=== PATIENT | female | born 1990 | race Caucasian/White ===

== ENCOUNTER 2017-11-14 07:34 | Inpatient (IN) | payer BC, MEDICAID ==
[2017-11-14] MEDS ORDERED: Penicillin G Potassium IV* 5,000,000 UNITS in NS 0.9% 100 ML* 100 ML IVPB ONE (09:00)
[2017-11-14 09:36] LABS: ABS Basophils 0.1 10^3/ul (0-0.2); ABS Eosinophils 0.1 10^3/ul (0-0.6); ABS Lymphocytes 1.6 10^3/ul (1.0-4.8); ABS Monocytes 0.6 10^3/ul (0-0.8); ABS Neutrophils 8.2 10^3/ul (1.5-7.7); ABS Nucleated RBC 0 10^3/ul; Eosinophil % 0.6 % (0-6); Hematocrit 33 % (35-47); Hemoglobin 11.1 g/dl (12.0-16.0); Lymphocyte % 15.1 % (25-47); Mean Corpuscular HGB Conc 33 g/dl (31-36); Mean Corpuscular Hemoglobin 25 pg (27-31); Mean Corpuscular Volume 76 fL (80-97); Mean Platelet Volume 7.9 um3 (7.4-10.4); Nucleated Red Blood Cells % 0.1; Platelet Count 271 10^3/ul (150-450); Red Blood Count 4.37 10^6/ul (4.0-5.4); Red Cell Distribution Width 18 % (10.5-15); White Blood Count 10.6 10^3/ul (3.5-10.8)
[2017-11-14] MEDS ORDERED: Oxytocin in LR* 20 UNITS/1,000 ML BAG IVPB SCH (10:00)
--- NOTE | 2017-11-14 10:56 | HP ---
General Information - General Information Maternal Age: 27 Grav: 1 Para: 0 SAB: 0 IEA: 0 Estimated Due Date: 11/21/17 Determined By: Early Ultrasound Gestational Age in Weeks and Days: 39 Weeks and 0 Days Maternal Blood Type and Rh: O Positive - Results this Serology/RPR Result: Non-Reactive Rubella Result: Immune HBsAg Result: Negative HIV Result: Negative GBS Culture Result: Positive Past Medical History Pertinent Past Medical History: Non-Contributory - Pt says she was dx'd with a heart murmur that "cleared up" by the time she was [age]. She saw a assurance services manager health care again at age 13 and was told she has a valve that doesn't close the whole way but that she doesn't need to worry about it - no symptoms at all Pertinent Past Surgical History: See Records Pertinent Family History: Non-Contributory - Antepartal Records Antepartal Records: Reviewed, Complicated by: - A1GDM Review of Systems Constitutional: Comfortable CV Complaint: No Respiratory: Shortness of Breath: No Gastrointestinal: No Nausea/Vomiting Genitourinary: No Dysuria, No Bleeding, No Leaking Fluid Musculoskeletal: No Complaint Neurological: No Headache, No Visual Changes Movement: Normal Exam Allergies/Adverse Reactions: Allergies No Known Allergies Allergy (Verified 11/14/17 07:56) Lab Values - Entire Visit: Laboratory Tests 11/14/17 11/14/17 09:25 09:25 WBC 10.6 RBC 4.37 Hgb 11.1 L Hct 33 L MCV 76 L MCH 25 L MCHC 33 RDW 18 H Plt Count 271 MPV 7.9 Neut % (Auto) 77.6 Lymph % (Auto) 15.1 L [place] % (Auto) 6.1 Eos % (Auto) 0.6 Baso % (Auto) 0.6 Absolute Neuts (auto) 8.2 H Absolute Lymphs (auto) 1.6 Absolute Monos (auto) 0.6 Absolute Eos (auto) 0.1 Absolute Basos (auto) 0.1 Absolute Nucleated RBC 0 Nucleated RBC % 0.1 Blood Type O Positive Antibody Screen Negative - Measurements Height: 5 ft 2.5 in Weight: 252 lb Weight in lbs: 252 Body Mass Index (BMI): 45.3 Pre- Weight: 8.889 oz Weight Gained This : 251.444 lbs and 0.007 ozs - Exam Abdomen: No Upper Quadrant Pain Breast: Breast Exam Deferred CVA: No CVA Tenderness Extremities: No Edema Heart: Normal Rhythm/Heart Sounds HEENT: No Significant Findings Lungs: Clear Bilaterally - Abdominal Exam Abdomen Exam: Non-Tender - Ultrasound/Biophysical Profile Ultrasound Findings: Had sono in the office on 11/08/17 with EFW 7lb 7oz, 61%ile with abd circ > 97.7ile and the HC and BPD <2.3%ile Targeted Exam Findings Cervical Exam: 2cm Effacement: 80% Station: -2 Presenting Part: Vertex Membrane Status: Intact EFM Findings - External Monitor Findings Baseline Heart Rate: 150 External Monitor Findings: Accelerations Present, No Pattern of Variable or Late Decelerations, Variability Moderate, Baseline Stable Contractions: Irregular Assessment/Plan - Reason for Visit Reason for Visit: Induction at 39 weeks. Pt counseled extensively on Saturday and given option for primary section due to large abdominal circumference. She understands the risk of shoulder dystocia and sequelae and prefers to proceed with induction. - Obstetrical Risk Factors Obstetrical Risk Factors: GBS Positive, Obesity, Gestational Diabetes Risk Factors Comment: Disproportionately large abdominal circumference compared to rest of the body. - Plan Plan: Induction, Antibiotic Prophylaxis Plan Comment: Pitocin Be prepared for possible shoulder dystocia. - Date/Time of Admission Date of Admission: 11/14/17 Time of Admission: 09:00
[2017-11-14] MEDS ORDERED: OBEPIDURAL* 250 ML EPIDURAL ONE (23:46)
[2017-11-15] MEDS ORDERED: Phenylephrine IV* 40 MCG/ML 10 ML SYRINGE IV PUSH PRN (00:51)
[2017-11-15] MEDS ORDERED: Sodium Citrate/Citric Acid* 15 ML UDC PO PRN (00:51)
[2017-11-15] MEDS ORDERED: Famotidine TAB* 20 MG PO PRN (00:51)
[2017-11-15] MEDS ORDERED: OBEPIDURAL* 250 ML EPIDURAL SCH (01:00)
[2017-11-15] MEDS: Penicillin G Potassium IV* 2,500,000 UNITS in NS 0.9% 100 ML* 100 ML IVPB SCH ×4 (03:00→11:07)
[2017-11-15] MEDS ORDERED: ceFOXitin 2 GM IVPREMIX* 2 GM/50 ML BAG IVPB ONE (11:43)
[2017-11-15] MEDS ORDERED: NS 0.9% 50 ML* 50 ML with ceFOXitin(*) 2 GM IVPB ONE ×2 (12:00)
[2017-11-15] MEDS ORDERED: Chloroprocaine 3%* 20 ML VIAL ONE (12:10)
[2017-11-15] MEDS ORDERED: Bupivacaine 0.5% SDV PF* 30ML VIAL ONE (12:10)
[2017-11-15] MEDS ORDERED: OXYTOCIN* 10 UNITS/ML 1 ML VIAL ONE (12:10)
[2017-11-15] MEDS ORDERED: Phenylephrine IV* 40 MCG/ML 10 ML SYRINGE ONE (12:10)
[2017-11-15] MEDS ORDERED: Famotidine IV* 10 MG/ML 2 ML (20 mg) ONE (12:29)
[2017-11-15] MEDS ORDERED: Ondansetron INJ* 2 MG/ML VIAL ONE (12:29)
[2017-11-15] MEDS ORDERED: Morphine PF AMP (0.5MG/ML)* 5 MG/10 ML AMP ONE (12:33)
[2017-11-15] MEDS ORDERED: oxyCODONE/Acetamin 5/325 MG* TAB PO PRN ×4 (13:09→13:15)
[2017-11-15] MEDS ORDERED: Zolpidem TAB* 5 MG PO PRN (13:09)
[2017-11-15] MEDS ORDERED: Dibucaine 1% 28.35 GM TUBE PR PRN (13:09)
[2017-11-15] MEDS ORDERED: Ibuprofen TAB* 600 MG PO PRN (13:09)
[2017-11-15] MEDS ORDERED: Glycerin ADULT SUPP PR PRN (13:09)
[2017-11-15] MEDS ORDERED: Witch Hazel PAD* JAR TOPICAL PRN (13:09)
[2017-11-15] MEDS ORDERED: Acetaminophen TAB* 325 MG PO PRN (13:09)
[2017-11-15] MEDS ORDERED: PROCHLORPERAZINE INJ 5 MG/ML 2 ML VIAL IV PRN (13:15)
[2017-11-15] MEDS ORDERED: Nalbuphine* 20 MG/ML 1 ML VIAL IV PRN ×2 (13:15)
[2017-11-15] MEDS ORDERED: Ondansetron INJ* 2 MG/ML VIAL IV PRN (13:15)
[2017-11-15] MEDS ORDERED: Naloxone* 0.4 MG/ML 1 ML VIAL IV PRN ×2 (13:15)
[2017-11-15] MEDS ORDERED: Scopolamine 1.5 mg* PATCH TRANSDERM PRN (13:15)
[2017-11-15] MEDS ORDERED: diPHENhydraMINE IV* 50 MG/ML 1 ml VIAL (BENADRYL) IV PRN (13:15)
[2017-11-15] MEDS ORDERED: DiMENhydriNATE IV* 50 MG/ML VIAL IV PUSH PRN (13:15)
[2017-11-15] MEDS ORDERED: fentaNYL* 50 MCG/ML 2 ML VIAL (100 MCG VIAL) IV PRN (13:15)
[2017-11-15] MEDS ORDERED: Ketorolac INJ* 30 MG/ML 1 ML VIAL ONE (13:51)
[2017-11-15] MEDS: Ketorolac INJ* 30 MG/ML 1 ML VIAL IV SCH ×2 (13:54→20:02)
[2017-11-15] MEDS ORDERED: Oxytocin in LR* 20 UNITS/1,000 ML BAG IVPB SCH (14:00)
[2017-11-15] MEDS: Docusate CAP* 100 MG PO SCH ×2 (14:58→20:02)
[2017-11-15] MEDS: Acetaminophen TAB* 325 MG PO SCH ×3 (14:58→22:01)
[2017-11-15] MEDS: Simethicone TAB* 80 MG TAB.CHEW PO SCH ×2 (18:07→22:01)
[2017-11-16] MEDS: Acetaminophen TAB* 325 MG PO SCH (03:32)
[2017-11-16] MEDS: Ketorolac INJ* 30 MG/ML 1 ML VIAL IV SCH ×2 (03:33→09:45)
[2017-11-16] MEDS ORDERED: oxyCODONE/Acetamin 5/325 MG* TAB PO PRN ×2 (04:50)
[2017-11-16 06:33] LABS: ABS Basophils 0 10^3/ul (0-0.2); ABS Eosinophils 0.1 10^3/ul (0-0.6); ABS Lymphocytes 1.9 10^3/ul (1.0-4.8); ABS Neutrophils 8.3 10^3/ul (1.5-7.7); ABS Nucleated RBC 0 10^3/ul; Hematocrit 27 % (35-47); Hemoglobin 9.1 g/dl (12.0-16.0); Lymphocyte % 16.6 % (25-47); Mean Corpuscular HGB Conc 33 g/dl (31-36); Mean Corpuscular Hemoglobin 25 pg (27-31); Mean Corpuscular Volume 77 fL (80-97); Mean Platelet Volume 7.5 um3 (7.4-10.4); Nucleated Red Blood Cells % 0; Platelet Count 239 10^3/ul (150-450); Red Blood Count 3.58 10^6/ul (4.0-5.4); Red Cell Distribution Width 18 % (10.5-15); White Blood Count 11.3 10^3/ul (3.5-10.8)
--- NOTE | 2017-11-16 06:49 | OP ---
AMENDED REPORT TO CORRECT DATE OF OPERATION - ESIGNED BEFORE ADJUSTMENT DATE OF OPERATION: 11/15/17 - ROOM #115 DATE OF : 86 SURGEON: Brian Harrison MD SALES OPERATIONS SPECIALIST: Ana Cristina Patricia MD ANESTHESIA: Epidural. PRE-OP DIAGNOSIS: Arrest of dilation,suspected macrosomia. POST-OP DIAGNOSIS: Arrest of dilation. ESTIMATED BLOOD LOSS: 600 cc. FINDINGS: This is a 27-year-old 1, para 0 with a moderately controlled gestational diabetes who had an estimated abdominal circumference in the 97th percentile, she was counseled on the risk of shoulder dystocia and given the alternative of section or induction. She chose induction at that time. She was induced with progression to approximately 6 to 7 cm at 5 a.m. on the day of delivery. She did not progress beyond that. At 11 o'clock, she was still stuck at 6 to 7 despite adequate labor. The risks, benefits, alternatives and indications of the section were discussed with the patient and the patient agreed. At the time of , she had a viable male , Apgars 8 and 9, weight was 8 pounds 4 ounces. Normal-appearing uterus, fallopian tubes, and ovaries. DESCRIPTION OF PROCEDURE: The patient identified and procedure identified as a low transverse section. The patient was taken to the operating room and prepped and draped in the usual fashion in the left lateral recumbent position under epidural anesthesia. A Pfannenstiel incision was made in the abdomen and carried down through fat, fascia, and peritoneum. An Mark retractor was placed in the abdominal cavity and tightened down until good exposure of the uterus was found. The transverse incision was made in the lower uterine segment and extended laterally using bandage scissors. The above was delivered through the incision with ease. The cord was doubly clamped and cut and the was handed to the awaiting diesel technician. Cord blood was obtained. Placenta was delivered spontaneously. The uterus was wiped out with a wet lap sponge. The uterine incision was then closed using 0 Polysorb in a running fashion. A second layer was used to imbricate the first layer. Good hemostasis was verified. Gutters were wiped out with a wet lap sponge. The peritoneum was then closed using 3-0 Polysorb in a running fashion. Good hemostasis was achieved in the subrectus layers. The fascia was closed using 0 Polysorb in a running fashion. Good hemostasis achieved in the subcu. Copious irrigation was utilized and suctioned out. The subcutaneous space and the fat was closed using 3-0 Polysorb and the skin was closed with 4- 0 Monocryl in a subcuticular fashion. All sponge and instrument counts were correct and the patient was returned to recovery room in stable condition. [id number]/[facility] #: [id number] [facility] HEALTH PARTNERSMadeleine
[2017-11-16] MEDS: Ferrous Gluconate TAB* 324 MG TAB PO SCH ×2 (08:00→20:28)
[2017-11-16] MEDS: Docusate CAP* 100 MG PO SCH ×3 (08:00→20:27)
[2017-11-16] MEDS: Simethicone TAB* 80 MG TAB.CHEW PO SCH ×4 (08:00→20:30)
[2017-11-16] MEDS: Acetaminophen TAB* 325 MG PO PRN ×3 (08:00→20:28)
[2017-11-16] MEDS: Ibuprofen TAB* 600 MG PO PRN ×2 (16:09→22:50)
[2017-11-17] MEDS: Acetaminophen TAB* 325 MG PO PRN ×3 (04:18→20:15)
[2017-11-17] MEDS: Ferrous Gluconate TAB* 324 MG TAB PO SCH ×2 (07:58→20:15)
[2017-11-17] MEDS: Simethicone TAB* 80 MG TAB.CHEW PO SCH ×4 (07:59→20:15)
[2017-11-17] MEDS: Ibuprofen TAB* 600 MG PO PRN ×3 (07:59→23:26)
[2017-11-17] MEDS: Docusate CAP* 100 MG PO SCH ×3 (07:59→20:15)
[2017-11-18] MEDS: Ibuprofen TAB* 600 MG PO PRN (05:39)
[2017-11-18 07:39] VITALS: BP 132/82
[2017-11-18] MEDS: Docusate CAP* 100 MG PO SCH (09:50)
[2017-11-18] MEDS: Ferrous Gluconate TAB* 324 MG TAB PO SCH (09:50)
[2017-11-18] MEDS: Simethicone TAB* 80 MG TAB.CHEW PO SCH (09:50)
[2017-11-18] MEDS ORDERED: Scopolamine PATCH Remove* 1 NOTE MISC PATCH OFF PRN (13:19)
== END 2017-11-18 13:48 | disposition home or self-care (01) | DRG 540 ==
LOC: MCHOBOUT 07:34 → MCHOB 08:29
PROVIDERS: ADMIT Obstetrics & Gynecology; ATTEND Obstetrics & Gynecology
PROC: 3E033VJ Introduction of Other Hormone into Peripheral Vein, Percutaneous Approach (ICD-10-PCS; 2017-11-15)
PROC: 10907ZC Drainage of Amniotic Fluid, Therapeutic from Products of Conception, Via Natural or Artificial Opening (ICD-10-PCS; 2017-11-15)
PROC: 10D00Z1 Extraction of Products of Conception, Low, Open Approach (ICD-10-PCS; principal; 2017-11-15 11:58)
DX: O62.0 Primary inadequate contractions (principal); Z68.42 Body mass index [BMI] 45.0-49.9, adult; O24.420 Gestational diabetes mellitus in childbirth, diet controlled; O99.824 Streptococcus B carrier state complicating childbirth; O99.214 Obesity complicating childbirth; E66.01 Morbid (severe) obesity due to excess calories; O36.63X0 Maternal care for excessive fetal growth, third trimester, not applicable or unspecified; Z3A.39 39 weeks gestation of pregnancy; Z37.0 Single live birth
CPT/HCPCS: 36415; 85025; 86850; 86900; 86901; A9270-GY; J0694; J1885; J2400; J2405; J2540; J2590

== ENCOUNTER 2019-06-26 11:41 | Inpatient (IN) | payer BC ==
[2019-06-26] MEDS ORDERED: Lactated Ringers 1000 ML Bag* 1,000 ML IV ONE (12:05)
[2019-06-26] MEDS ORDERED: Buffered Lidocaine 1% SYRIN* 1 ML/SYRINGE INTRADERM ONE (12:05)
[2019-06-26] MEDS ORDERED: Lactated Ringers 1000 ML Bag* 1,000 ML IV SCH ×2 (13:00→20:00)
[2019-06-26 13:21] LABS: Hematocrit 32 % (35-47); Hemoglobin 10.7 g/dL (12.0-16.0); Mean Corpuscular HGB Conc 34 g/dL (31-36); Mean Corpuscular Hemoglobin 25 pg (27-31); Mean Corpuscular Volume 75 fL (80-97); Mean Platelet Volume 7.8 fL (7.4-10.4); Platelet Count 240 10^3/uL (150-450); Red Blood Count 4.27 10^6 /uL (3.70-4.87); Red Cell Distribution Width 19 % (10-15); White Blood Count 9.7 10^3/uL (3.5-10.8)
[2019-06-26 13:40] LABS: ABS Basophils 0.1 10^3/ul (0-0.2); ABS Eosinophils 0.1 10^3/ul (0-0.6); ABS Lymphocytes 1.6 10^3/ul (1.0-4.8); ABS Monocytes 0.9 10^3/ul (0-0.8); ABS Neutrophils 7.3 10^3/ul (1.5-7.7); Eosinophil % 0.8 %; Lymphocyte % 16.5 %
[2019-06-26 13:41] LABS: Albumin 3.2 g/dL (3.2-5.2); Albumin/Globulin Ratio 1.2 (1-3); BUN/Creatinine Ratio 21.7 (8-20); EGFR African American 191.7 (>60); EGFR Non-African American 158.4 (>60); Globulin 2.7 g/dL (2-4); Potassium 3.9 mmol/L (3.5-5.0); Total Bilirubin 0.3 mg/dL (0.2-1.0); Total Protein 5.9 g/dL (6.4-8.9); Uric Acid 3.5 mg/dL (2.3-6.6)
[2019-06-26 13:43] LABS: Urine Benzodiazepine Screen None Detected (None Detect); Urine Opiates Screen None Detected (None Detect)
--- NOTE | 2019-06-26 14:48 | HP ---
General Information - Reason for Visit Pt sent from lab with markedly elevated BP (160/100s). Pt known to have CHTN, with normal to mild HTN until last week. She did have one severe range BP last week which improved when repeated. Pt's first 24 hr urine protein was about 240mg. She turned one in to [facility] yesterday but it apparently was not run because it was missing an order. Pt with no PONCE/SOB/RUQ pain. - General Information Maternal Age: 29 Grav: 2 Para: 1 SAB: 0 IEA: 0 Estimated Due Date: 07/13/19 Determined By: Early Ultrasound Maternal Blood Type and Rh: O Positive - Results this Serology/RPR Result: Non-Reactive Rubella Result: Immune HBsAg Result: Negative HIV Result: Negative Past Medical History Delivery History: Hx C/Section Pertinent Past Medical History: See Records - obesity Pertinent Past Surgical History: See Records - Antepartal Records Antepartal Records: Reviewed, Complicated by: - morbid obesity, h/o C/ S, CHTN Review of Systems Constitutional: Comfortable CV Complaint: No Respiratory: Shortness of Breath: No Gastrointestinal: No Nausea/Vomiting, Normal Bowel Movement Genitourinary: No Dysuria, No Bleeding, No Leaking Fluid Musculoskeletal: No Complaint Neurological: No Headache, No Visual Changes Movement: Normal Exam Allergies/Adverse Reactions: Allergies No Known Allergies Allergy (Verified 11/14/17 07:56) Lab Values - Entire Visit: Laboratory Tests 06/26/19 06/26/19 06/26/19 13:07 13:07 13:07 WBC RBC Hgb Hct MCV MCH MCHC RDW Plt Count MPV Neut % (Auto) Lymph % (Auto) [place] % (Auto) Eos % (Auto) Baso % (Auto) Absolute Neuts (auto) Absolute Lymphs (auto) Absolute Monos (auto) Absolute Eos (auto) Absolute Basos (auto) Absolute Nucleated RBC Nucleated RBC % Sodium 136 Potassium 3.9 Chloride 108 Carbon Dioxide 20 L Anion Gap 8 BUN 10 Creatinine 0.46 L Est GFR ( Amer) 191.7 Est GFR (Non-Af Amer) 158.4 BUN/Creatinine Ratio 21.7 H Glucose 85 Uric Acid 3.5 Calcium 9.0 Total Bilirubin 0.30 AST 12 L ALT 8 Alkaline Phosphatase 177 H Total Protein 5.9 L Albumin 3.2 Globulin 2.7 Albumin/Globulin Ratio 1.2 Urine Opiates Screen None detected Ur Barbiturates Screen None detected Ur Phencyclidine Scrn None detected Ur Amphetamines Screen None detected U Benzodiazepines Scrn None detected Urine Cocaine Screen None detected U Cannabinoids Screen None detected Blood Type O Positive Antibody Screen Negative 06/26/19 13:07 WBC 9.7 RBC 4.27 Hgb 10.7 L Hct 32 L MCV 75 L MCH 25 L MCHC 34 RDW 19 H Plt Count 240 MPV 7.8 Neut % (Auto) 73.5 Lymph % (Auto) 16.5 [place] % (Auto) 8.6 Eos % (Auto) 0.8 Baso % (Auto) 0.6 Absolute Neuts (auto) 7.3 Absolute Lymphs (auto) 1.6 Absolute Monos (auto) 0.9 H Absolute Eos (auto) 0.1 Absolute Basos (auto) 0.1 Absolute Nucleated RBC 0.0 Nucleated RBC % 0.0 Sodium Potassium Chloride Carbon Dioxide Anion Gap BUN Creatinine Est GFR ( Amer) Est GFR (Non-Af Amer) BUN/Creatinine Ratio Glucose Uric Acid Calcium Total Bilirubin AST ALT Alkaline Phosphatase Total Protein Albumin Globulin Albumin/Globulin Ratio Urine Opiates Screen Ur Barbiturates Screen Ur Phencyclidine Scrn Ur Amphetamines Screen U Benzodiazepines Scrn Urine Cocaine Screen U Cannabinoids Screen Blood Type Antibody Screen - Measurements Height: 5 ft 4 in Weight: 279 lb Weight in lbs: 279.352730 Body Mass Index (BMI): 47.9 Pre- Weight: 275 lb Weight Gained This : 4 lbs and 0 ozs - Exam Breast: Breast Exam Deferred CVA: No CVA Tenderness Heart: Normal Rhythm/Heart Sounds HEENT: No Significant Findings Lungs: Clear Bilaterally Rectal: Rectal Exam Deferred - Abdominal Exam Abdomen Exam: Non-Tender, Fundal Height Consistent with Dates - Ultrasound/Biophysical Profile Ultrasound Status: Not Done EFM Findings - External Monitor Findings Baseline Heart Rate: 130 External Monitor Findings: Accelerations Present, No Pattern of Variable or Late Decelerations, Variability Moderate, Baseline Stable Contractions: None Assessment/Plan - Assessment 37 wks EGA with GDMA2 and CHTN, now with severe range blood pressure vs superimposed pre-eclampsia. Considering increase in BP, plan delivery today. Will check urine protein collection when it returns. May need to consider Magnesium sz prophylaxis. Pt counseled for procedure today. We reviewed risks of hemorrhage, transfusion, infection, organ injury, DVT, hysterectomy. Pt also desires BTL which was discussed during her . She understands it is permanent and wants to proceed. Consent signed. - Obstetrical Risk Factors Obstetrical Risk Factors: GBS Unknown, Obesity, Chronic Hypertension, Diabetes - Plan Plan: C/S Delivery Plan Comment: Will proceed with repeat C/S and BTL when anesthesia considers it appropriate since she ate at 0900. - Date/Time of Admission Date of Admission: 06/26/19 Time of Admission: 12:00
[2019-06-26] MEDS ORDERED: ceFOXitin 2 GM IVPREMIX* 2 GM/50 ML BAG IVPB ONE (15:38)
[2019-06-26] MEDS ORDERED: Morphine PF AMP (0.5MG/ML)* 5 MG/10 ML AMP ONE (17:21)
[2019-06-26 17:33] LABS: Urine TP Concentration 14 mg/dL
[2019-06-26] MEDS ORDERED: DiMENhydriNATE IV* 50 MG/ML VIAL IV PUSH PRN ×2 (18:31→18:33)
[2019-06-26] MEDS ORDERED: diPHENhydraMINE IV* 50 MG/ML 1 ml VIAL (BENADRYL) IV PRN ×2 (18:31→18:33)
[2019-06-26] MEDS ORDERED: HYDROmorphone INJ1* 1 MG/ML SYRINGE IV PRN (18:31)
[2019-06-26] MEDS ORDERED: Naloxone* 0.4 MG/ML 1 ML VIAL IV PRN ×2 (18:31→18:33)
[2019-06-26] MEDS ORDERED: Ondansetron INJ* 2 MG/ML VIAL IV PRN ×2 (18:31→18:33)
[2019-06-26] MEDS ORDERED: fentaNYL* 50 MCG/ML 2 ML VIAL (100 MCG VIAL) IV PRN (18:31)
[2019-06-26] MEDS ORDERED: oxyCODONE/Acetamin 5/325 MG* TAB PO PRN (18:33)
[2019-06-26] MEDS ORDERED: Scopolamine 1.5 mg* PATCH TRANSDERM PRN (18:33)
[2019-06-26] MEDS ORDERED: OXYTOCIN* 10 UNITS/ML 1 ML VIAL ONE (18:38)
[2019-06-26] MEDS ORDERED: Ketorolac INJ* 30 MG/ML 1 ML VIAL ONE (18:50)
[2019-06-26] MEDS ORDERED: Dexamethasone IV* 4 MG/ML 1 ML (4 MG) ONE (19:09)
[2019-06-26] MEDS ORDERED: Ondansetron INJ* 2 MG/ML VIAL ONE (19:09)
[2019-06-26] MEDS ORDERED: fentaNYL* 50 MCG/ML 2 ML VIAL (100 MCG VIAL) ONE (19:11)
[2019-06-26] MEDS ORDERED: Labetalol IV* 5 MG/ML 20 ML VIAL ONE (19:39)
[2019-06-26] MEDS ORDERED: Witch Hazel PAD* JAR TOPICAL PRN (19:53)
[2019-06-26] MEDS ORDERED: Dibucaine 1% 28.35 GM TUBE PR PRN (19:53)
[2019-06-26] MEDS: Ketorolac INJ* 30 MG/ML 1 ML VIAL IV PRN (20:13)
[2019-06-26] MEDS: Ibuprofen TAB* 600 MG PO SCH (20:13)
[2019-06-26] MEDS: Simethicone TAB* 80 MG TAB.CHEW PO SCH ×2 (21:00→22:30)
[2019-06-26] MEDS: Docusate CAP* 100 MG PO SCH ×2 (21:00→22:30)
[2019-06-26] MEDS: Labetalol TAB* 100 MG PO SCH (22:30)
--- NOTE | 2019-06-27 03:59 | OP ---
OPERATIVE REPORT: DATE OF OPERATION: 06/26/19 - [facility] DATE OF : 86 SURGEON: Ana Cristina Patricia MD REMEDIAL PROJECT MANAGER: Mattie Vera CNM ANESTHESIOLOGIST: Dominguez Núñez MD ANESTHESIA: Spinal. PRE-OP DIAGNOSIS: 37 plus 4 weeks gestation with severe chronic hypertension, morbid obesity, history of previous and satisfied parity. POST-OP DIAGNOSIS: 37 plus 4 weeks gestation with severe chronic hypertension, morbid obesity, history of previous and satisfied parity. OPERATIVE PROCEDURE: Repeat low transverse section and bilateral tubal ligation. ESTIMATED BLOOD LOSS: 800 cc. URINE OUTPUT: 30 cc. IV FLUIDS: 1300 cc lactated Ringer's. MATERIALS TO LAB: Cord blood and bilateral tube segments. INDICATIONS: This patient is a 29-year-old 2, para 1 who presented from the office today with severely elevated blood pressure of 160/100. The patient had a history of chronic hypertension diagnosed during the as she had mildly elevated blood pressures throughout much of the . A 24- hour urine protein was done twice and returned in the normal range. Considering today she was 37 weeks and was having severe range blood pressures, the decision was made to proceed with a section. She was extensively counseled and a consent was signed for both the and the bilateral tubal ligation. FINDINGS: Normal appearing uterus, fallopian tubes, and ovaries. Delivery was productive of a female , weighing 8 pounds 4 ounces with Apgars of 8 and 9. Time of delivery was 1839. COMPLICATIONS: None. DESCRIPTION OF PROCEDURE: The risks, benefits, and alternatives were described to the patient, and informed consent was obtained. The patient was taken to the operating room with IV running, where spinal anesthesia was induced and found to be adequate. The patient was prepped and draped in normal sterile fashion in the dorsal supine position with a leftward tilt. A Pfannenstiel skin incision was made with a scalpel through the patient's previous incision. This was carried down to the underlying fascia using the scalpel. The fascia was scored in the midline, and the incision was extended using Carrasco scissors. The fascia was dissected off the underlying rectus muscles using blunt and sharp dissection. The rectus muscles were in the midline using dissection with a Marlene clamp. The peritoneum was then entered bluntly. A bladder blade was placed. A low transverse uterine incision was then made with the scalpel. This was carried down to the amniotic membranes. The membranes were then ruptured, productive of clear fluid. The uterine incision was extended using blunt traction. The head was elevated to the level of the incision, and, with fundal pressure, the head delivered without difficulty. The shoulders then were also both delivered and the body followed. The had excellent tone and cried immediately on delivery. The cord was doubly clamped and cut. The was then handed to the awaiting afternoon babysitter. Cord blood was collected. The placenta was delivered with manual extraction. The uterus was then exteriorized and cleared of all clots and debris. The uterine incision was then reapproximated using 0 Vicryl in a running-locked fashion. A second layer of imbricating 0 Vicryl sutures was then also placed for good hemostasis. The posterior cul-de-sac was irrigated with saline. The right Fallopian tube was grasped with a [place] clamp in the mid-isthmic region. A window was made in the mesosalpinx with the Bovie, and an approximately 4cm segment of tube was tied off using 3-0 Vicryl ties. The tied of segment was then excised using Metzenbaum scissors. The same was then performed on the left side, again with excellent hemostasis. The uterus was then returned to the abdomen. The incision and tubal ligation sites were reinspected and still noted to be hemostatic. The peritoneum was closed with 3- 0 Vicryl in a running fashion. The fascia was closed with 0 Vicryl in a running fashion. The subcutaneous tissues were copiously irrigated and made hemostatic using the Bovie. The subcutaneous tissues were then reapproximated using 3-0 Vicryl in interrupted sutures. The skin was then closed with 4-0 Monocryl in a subcuticular stitch. Mastisol and steristrips were then applied. A sterile bandage was then placed over the incision. The patient tolerated the procedure well. Sponge, lap, and needle counts were correct x2. [id number]/[facility] #: [id number] [facility]
[2019-06-27 06:56] LABS: Hematocrit 27 % (35-47); Hemoglobin 9.1 g/dL (12.0-16.0); Mean Corpuscular HGB Conc 33 g/dL (31-36); Mean Corpuscular Hemoglobin 25 pg (27-31); Mean Corpuscular Volume 74 fL (80-97); Mean Platelet Volume 7.8 fL (7.4-10.4); Platelet Count 217 10^3/uL (150-450); Red Blood Count 3.67 10^6 /uL (3.70-4.87); Red Cell Distribution Width 19 % (10-15); White Blood Count 12.6 10^3/uL (3.5-10.8)
[2019-06-27] MEDS: Ketorolac INJ* 30 MG/ML 1 ML VIAL IV PRN (08:10)
[2019-06-27] MEDS: Docusate CAP* 100 MG PO SCH ×3 (08:11→21:44)
[2019-06-27] MEDS: Simethicone TAB* 80 MG TAB.CHEW PO SCH ×3 (08:11→21:44)
[2019-06-27] MEDS: Ferrous Gluconate TAB* 324 MG TAB PO SCH (08:18)
[2019-06-27 08:25] LABS: ABS Lymphocytes 1.4 10^3/ul (1.0-4.8); ABS Monocytes 0.9 10^3/ul (0-0.8); ABS Neutrophils 10.3 10^3/ul (1.5-7.7); Lymphocyte % 10.9 %
[2019-06-27] MEDS: Labetalol TAB* 100 MG PO SCH ×2 (10:04→21:44)
--- NOTE | 2019-06-27 10:05 | PN ---
Progress Note - Progress Note Date of Service: 06/27/19 Note: POST OPERATIVE/ PROGRESS NOTE S: Pt doing well. POD #1 s/p rLTCS in the context of poorly controlled CHTN and GDMA2. Pain has been appropriately controlled overnight. Joseph is in, adequate UOP overnight. Tolerating regular diet. Denies PONCE, changes in vision, RUQ pain, fever, chills, n/v, cp, sob. O: AVSS, afebrile Gen: nad, aaox3 CV: RRR Pulm: CTABL Abd: soft, nd, nttp, fundus firm below the U Incision: bandage remains in place, clean and dry Ext: warm, nttp A/P:29 y/o POD#1 s/p rLTCS at 37w4d in the context of poorly controlled CHTN and GDMA2; doing well - AVSS, afebrile, hemodynamically stable, post op Hct 27 - on PO Fe - BP's normotensive, on Labetalol 200mg BID, will continue to monitor, pt is asymptomatic, no s/sx of PreE at this time - GDMA2 - pt drank juice prior to nursing attempting to collect fasting FSBG, will collect fasting FSBG tomorrow AM - Pain is well controlled - : UOP adequate, joseph out this AM - Encouraged ambulation - RH+/ Rubella Immune - Continue routine post operative/post care DO JERSON Levin
[2019-06-27] MEDS: Ibuprofen TAB* 600 MG PO SCH ×3 (10:06→21:45)
[2019-06-27] MEDS: oxyCODONE/Acetamin 5/325 MG* TAB PO PRN ×4 (10:17→23:16)
[2019-06-28] MEDS: Ibuprofen TAB* 600 MG PO SCH ×3 (04:21→20:00)
[2019-06-28] MEDS: oxyCODONE/Acetamin 5/325 MG* TAB PO PRN ×3 (04:22→14:34)
[2019-06-28] MEDS: Docusate CAP* 100 MG PO SCH ×3 (08:24→20:00)
[2019-06-28] MEDS: Simethicone TAB* 80 MG TAB.CHEW PO SCH ×5 (08:24→21:00)
[2019-06-28] MEDS: Ferrous Gluconate TAB* 324 MG TAB PO SCH (08:25)
[2019-06-28] MEDS: Labetalol TAB* 100 MG PO SCH ×2 (10:07→21:08)
[2019-06-29] MEDS: Ibuprofen TAB* 600 MG PO SCH ×2 (02:36→08:22)
[2019-06-29] MEDS: Docusate CAP* 100 MG PO SCH (08:23)
[2019-06-29] MEDS: Ferrous Gluconate TAB* 324 MG TAB PO SCH (08:23)
[2019-06-29] MEDS: Simethicone TAB* 80 MG TAB.CHEW PO SCH (08:23)
[2019-06-29] MEDS: Labetalol TAB* 100 MG PO SCH (08:23)
[2019-06-29 09:11] VITALS: BP 153/80
[2019-06-29] MEDS ORDERED: Scopolamine PATCH Remove* 1 NOTE MISC PATCH OFF PRN (18:35)
== END 2019-06-29 11:54 | disposition home or self-care (01) | DRG 540 ==
LOC: MCHOBOUT 11:41 → MCHOB 12:11
PROVIDERS: ADMIT Obstetrics & Gynecology; ATTEND Obstetrics & Gynecology
PROC: 10D00Z1 Extraction of Products of Conception, Low, Open Approach (ICD-10-PCS; principal; 2019-06-25)
PROC: 4A1HXCZ Monitoring of Products of Conception, Cardiac Rate, External Approach (ICD-10-PCS; 2019-06-25)
PROC: 0UB70ZZ Excision of Bilateral Fallopian Tubes, Open Approach (ICD-10-PCS; 2019-06-25)
DX: O34.211 Maternal care for low transverse scar from previous cesarean delivery (principal); O16.4 Unspecified maternal hypertension, complicating childbirth; O99.214 Obesity complicating childbirth; E66.01 Morbid (severe) obesity due to excess calories; O24.424 Gestational diabetes mellitus in childbirth, insulin controlled; O99.02 Anemia complicating childbirth; O24.425 Gestational diabetes mellitus in childbirth, controlled by oral hypoglycemic drugs; Z3A.37 37 weeks gestation of pregnancy; Z37.0 Single live birth; Z30.2 Encounter for sterilization
CPT/HCPCS: 36415; 80053; 80307; 84156; 84550; 85025; 86850; 86900; 86901; 88302; A9270-GY; J0694; J1100; J1885; J2405; J2590; J3010